=== PATIENT | male | born 1940 | race Caucasian/White ===

== ENCOUNTER 2019-01-16 11:02 | Inpatient (IN) ==
[2019-01-16] MEDS ORDERED: Nitroglycerin 0.4 MG TAB.SUBL SL PRN (11:20)
[2019-01-16] MEDS ORDERED: Isovue-370 500 ML BOTTLE IVP ONE (11:33)
[2019-01-16 11:42] LABS: Basophils % 0.4 %; Eosinophils # 0.1 K/mcL (0.0-0.6); Eosinophils % 1.1 %; Hematocrit 36.1 % (37.5-50.1); Hemoglobin 11.8 g/dL (12.9-16.9); Immature Granulocytes % 0.5 % (0-4); Lymphocytes # 1.1 K/mcL (0.6-4.6); Lymphocytes % 12.4 %; Mean Corpuscular HGB Conc 32.7 g/dL (31.6-35.5); Mean Corpuscular Hemoglobin 30.8 pg (28.0-33.3); Mean Corpuscular Volume 94.3 fL (83.0-100.0); Mean Platelet Volume 9.6 fL (9.4-12.4); Monocytes # 0.7 K/mcL (0.0-1.3); Monocytes % 7.7 %; Neutrophils # 6.6 K/mcL (1.6-8.9); Platelet Count 271 K/mcL (140-400); Red Blood Count 3.83 M/mcL (4.19-5.50); Red Cell Distribution Width 13.4 % (11.5-14.5); Segmented Neutrophils % 77.9 %
[2019-01-16 12:03] LABS: INR 2.6; Prothrombin Time 29.1 Seconds (9.4-12.1)
[2019-01-16 12:05] LABS: BUN/Creatinine Ratio 16 (6-26); Blood Urea Nitrogen 12 mg/dL (8-23); Calcium 9.1 mg/dL (8.6-10.3); Carbon Dioxide 27 mEq/L (23-29); Chloride 104 mEq/L (98-107); Glucose 122 mg/dL (70-105); Osmolality,Calculated 287 (280-300); Potassium 4.3 mEq/L (3.5-5.1); Sodium 138 mEq/L (136-145); eGFR For Non-African Americans > 60 (> 60)
[2019-01-16 12:06] LABS: Activated Partial Thrombo Time 34.7 Seconds (26.0-36.0); Troponin I < 0.03 ng/mL (< 0.04)
--- NOTE | 2019-01-16 12:38 | Emergency Department Note ---
Disposition Clinical Impression: Lung nodules, Liver nodule Chest pain Qualifiers: Qualified Code(s): R07.9 - Chest pain, unspecified Lung cancer Qualifiers: Laterality: unspecified laterality Lung location: unspecified part of lung Qualified Code(s): C34.90 - Malignant neoplasm of unspecified part of unspecified bronchus or lung Disposition: Admitted As Inpatient Condition: Good Time of Disposition: 15:06 General Adult HPI - General Stated complaint: chest pain Time Seen by Provider: 01/16/19 11:08 Source: EMS Limitations: no limitations Nursing Notes Reviewed: Yes Vital Signs Reviewed: Yes - History of Present Illness HPI Narrative: Male patient presents emergency complaining of a chest pressure. States it radiates to his back. Does have associated shortness of breath. Has a history of lung cancer with partial resection of his right lung. Reports he has never had any pain like this before. No history of IA. No history of PE or DVT. Patient was given 4 baby aspirin as well as nitroglycerin on the way here. He was at the cancer center when the started taking a medication for his . Sitting down when he noticed the pain. He states that he does believe he got some relief with the nitroglycerin on the way over. We did provide him with more that while he is here. Pain Scale: 5 - Related Data Home Medications Medication Instructions Recorded Confirmed Allopurinol [Zyloprim 300 MG] 300 mg PO DAILY 01/16/19 01/16/19 Atorvastatin [Lipitor] 20 mg PO HS 01/16/19 01/16/19 Budesonide/Formoterol 80/4.5 1 puff IH DAILY 01/16/19 01/16/19 [Symbicort 80/4.5] Digoxin [Lanoxin] 0.125 mg PO DAILY 01/16/19 01/16/19 Diltiazem CD (24hr) [Cardizem CD] 240 mg PO DAILY 01/16/19 01/16/19 Finasteride [Proscar] 5 mg PO DAILY 01/16/19 01/16/19 Ipratropium/Albuterol Neb [Duoneb] 3 ml IH Q6HR 01/16/19 01/16/19 Metoprolol [Lopressor] 50 mg PO BID 01/16/19 01/16/19 Multivit-Min/FA/Lycopen/Lutein 1 tab PO DAILY 01/16/19 01/16/19 [Centrum Silver Tablet] Omeprazole [PriLOSEC] 20 mg PO DAILY 01/16/19 01/16/19 Potassium Chloride [K-Tab ER] 20 meq PO 01/16/19 RX: Saw Shushan 320 mg PO DAILY 01/16/19 01/16/19 RX: Warfarin [Coumadin] 6 mg PO DAILY 01/16/19 01/16/19 Tamsulosin [Flomax] 0.4 mg PO DAILY PRN 01/16/19 01/16/19 Allergies Allergy/AdvReac Type Severity Reaction Status Date / Time No Known Allergies Allergy Verified 01/16/19 11:38 All systems ED: reviewed and negative except as stated. Review of Systems: As Per HPI Constitutional: Denies: fever, chills ENT ED: Denies: congestion Cardiovascular: Reports: chest pain. Denies: palpitations, syncope Respiratory: Reports: dyspnea. Denies: cough, sputum production Gastrointestinal: Denies: abdominal pain, nausea, vomiting, diarrhea Past Medical History - Past Medical History Attestation: Yes The following information was validated with the patient. Source: patient Medical history: Reports: atrial fibrillation, cancer, DVT Psychiatric history: Reports: no psych history - Social History Smoking Status: Former smoker Smokeless Tobacco Status: No Alcohol use: Reports: none Drug use: Reports: none Physical Exam - General Limitations: no limitations General appearance: alert, in no apparent distress - Head Head exam: atraumatic, normocephalic, normal inspection - Eye Eye exam: Present: normal appearance, PERRL, EOMI - ENT ENT exam: normal exam, normal oropharynx, mucous membranes moist - Neck Neck exam: Present: normal inspection, full ROM, trachea midline - Chest Chest inspection: Present: normal inspection, symmetric chest wall rise - Respiratory Respiratory exam: Present: normal lung sounds bilaterally. Absent: respiratory distress, accessory muscle use - Cardiovascular Cardiovascular exam: Present: regular rate, normal rhythm, normal heart sounds - Abdominal Exam Abdominal exam: Present: soft, Non-Tender. Absent: tenderness, distention, guarding, rebound, rigidity, organomegaly - Extremities Exam Extremities exam: Present: normal inspection, full ROM, normal capillary refill. Absent: tenderness, pedal edema - Back Exam Back exam: Present: normal inspection, full ROM. Absent: tenderness - Neurological Exam Neurological exam: Present: alert, oriented X3 - Psychiatric Psychiatric exam: Present: normal affect, normal mood - Skin Skin exam: Present: warm, dry, intact, normal color. Absent: rash, cyanosis, diaphoresis Course Course Narrative: Male patient with no cardiac history but a history of smoking as well as cancer presenting with chest pain radiates to his back. Has had some mild relief with nitroglycerin. We did provide him with aspirin as well. We will get a basic lab workup on patient and EKG and a CTA PE study. Patient is agreeable with this plan. His lung sounds are clear and heart tones are normal. No signs of edema to his extremities. Abdomen is soft and nontender. Does have a history of A. fib and is currently on Coumadin for this. - Reevaluation(s) Reevaluation #1: Patient CT concerning for metastasis to bilateral lungs. EKG no signs of acute ischemia troponin is negative. No signs of PE to his TTP. Also concerns for possible metastases to his liver. We discussed admission to the hospital for further ACS rule out and possible further evaluation of his chest pain. He is agreeable with this. He requested that I speak with his . I did call her and discussed that there are multiple nodules in the patient's lung and that there was concern that these may be cancer. She expressed understanding. She was also agreeable with the plan. Patient was very anxious during our discussion. Diarrhea. Several times that the nodules were in both sides of his lungs however we were not able to diagnose cancer although that was a concern of ours. We also discussed the liver nodules. We will admit to the hospital at this time. Patient still denies any chest pain or shortness of breath. Also been to the she did admit that the patient has been complaining of some fatigue over the past several months. Time: 15:03 - Consultations Consultation #1: Dr. Rodriguez accepted patient in stable condition. Time: 14:40 Vital Signs Temperature 97.6 F 01/16/19 11:11 Pulse Rate 62 01/16/19 11:11 Respiratory Rate 22 01/16/19 11:11 Blood Pressure 142/74 01/16/19 11:11 O2 Sat by Pulse Oximetry 100 01/16/19 11:11 Temperature 98.1 F 01/17/19 15:39 Pulse Rate 59 01/17/19 15:39 Respiratory Rate 16 01/17/19 15:39 Blood Pressure 152/71 01/17/19 15:39 O2 Sat by Pulse Oximetry 99 01/17/19 15:39 Oxygen Delivery Oxygen Delivery Room Air Medical Decision Making - Medical Records Medical records reviewed: Yes I reviewed the patient's medical records. - Lab Data Lab results reviewed: Yes I reviewed the patient's lab results. Result diagrams: 01/17/19 00:17 01/17/19 00:17 Lab Results 01/16/19 01/16/19 01/16/19 Range/Units 11:27 11:27 11:27 WBC 8.5 (4.3-11.1) K/mcL RBC 3.83 L (4.19-5.50) M/mcL Hgb 11.8 L (12.9-16.9) g/dL Hct 36.1 L (37.5-50.1) % MCV 94.3 (83.0-100.0) fL MCH 30.8 (28.0-33.3) pg MCHC 32.7 (31.6-35.5) g/dL RDW 13.4 (11.5-14.5) % Plt Count 271 (140-400) K/mcL MPV 9.6 (9.4-12.4) fL Immature Gran % 0.5 (0-4) % Seg Neutrophils % 77.9 % Lymphocytes % 12.4 % Monocytes % 7.7 % Eosinophils % 1.1 % Basophils % 0.4 % Neutrophils # 6.6 (1.6-8.9) K/mcL Lymphocytes # 1.1 (0.6-4.6) K/mcL Monocytes # 0.7 (0.0-1.3) K/mcL Eosinophils # 0.1 (0.0-0.6) K/mcL Basophils # 0.0 (0.0-0.2) K/mcL PT 29.1 H (9.4-12.1) Seconds INR 2.6 APTT 34.7 (26.0-36.0) Seconds D-Dimer 631 H (0-500) ng/mLFEU Sodium 138 (136-145) mEq/L Potassium 4.3 (3.5-5.1) mEq/L Chloride 104 (98-107) mEq/L Carbon Dioxide 27 (23-29) mEq/L BUN 12 (8-23) mg/dL Creatinine 0.73 (0.70-1.30) mg/dL Est GFR ( Amer) > 60 (> 60) Est GFR (Non-Af Amer) > 60 (> 60) BUN/Creatinine Ratio 16 (6-26) Glucose 122 H (70-105) mg/dL Calculated Osmolality 287 (280-300) Calcium 9.1 (8.6-10.3) mg/dL Troponin I < 0.03 (< 0.04) ng/mL B-Natriuretic Peptide (Less than 100) pg/mL 01/16/19 Range/Units 11:27 WBC (4.3-11.1) K/mcL RBC (4.19-5.50) M/mcL Hgb (12.9-16.9) g/dL Hct (37.5-50.1) % MCV (83.0-100.0) fL MCH (28.0-33.3) pg MCHC (31.6-35.5) g/dL RDW (11.5-14.5) % Plt Count (140-400) K/mcL MPV (9.4-12.4) fL Immature Gran % (0-4) % Seg Neutrophils % % Lymphocytes % % Monocytes % % Eosinophils % % Basophils % % Neutrophils # (1.6-8.9) K/mcL Lymphocytes # (0.6-4.6) K/mcL Monocytes # (0.0-1.3) K/mcL Eosinophils # (0.0-0.6) K/mcL Basophils # (0.0-0.2) K/mcL PT (9.4-12.1) Seconds INR APTT (26.0-36.0) Seconds D-Dimer (0-500) ng/mLFEU Sodium (136-145) mEq/L Potassium (3.5-5.1) mEq/L Chloride (98-107) mEq/L Carbon Dioxide (23-29) mEq/L BUN (8-23) mg/dL Creatinine (0.70-1.30) mg/dL Est GFR ( Amer) (> 60) Est GFR (Non-Af Amer) (> 60) BUN/Creatinine Ratio (6-26) Glucose (70-105) mg/dL Calculated Osmolality (280-300) Calcium (8.6-10.3) mg/dL Troponin I (< 0.04) ng/mL B-Natriuretic Peptide 227 H (Less than 100) pg/mL - Radiology Data Radiology results reviewed: Yes I reviewed the patient's radiology results. Chest X-Ray 01/16/19 11:09 IMPRESSION: 1. No acute cardiopulmonary process identified. 2. Stable postsurgical changes within the right hemithorax. D/ / David Zabala MD / David Zabala MD Interpreting Provider: David Zabala MD - EKG Data EKG #1 EKG attestation: Yes I reviewed and interpreted this EKG. EKG results narrative: A. fib at a rate of 58. OR interval was not measured. Castration is 101. QT is 49. QTC is 366. No signs of acute ischemia. Good R-wave progression. No signs of WPW or Brugada. Attestation Statement - Attestation Attestation: Resident Attestation: I examined this patient and my medical decision making was reviewed with the Resident Physician. I agree with the documented findings, disposition and treatment plan as described except to the extent set forth below. We independently had [id number] contact with the patient. Patient presented for evaluation of chest pain and shortness of breath. Patient going for evaluation for ACS as well as pone any pathology. Resting in bed currently, no acute distress, chest pain to the center of his chest radiating across, lungs clear to auscultation bilaterally, regular rhythm, abdomen soft nontender palpation, no significant swelling in the peripheral extremities Patient CT scan concerning for significant metastases. Patient will undergo admission for further evaluation of chest pain and abnormal radiographic findings.
--- NOTE | 2019-01-16 15:33 | Internal Med History&Physical ---
Date of Encounter: 01/16/19 Time of Encounter: 11:00 Internal Medicine - H&P: HPI Chief complaint: Chest pain Admitted From: Home Plans for Post Hospital Care: Home History of present illness: Patient is a 78-year-old male with past medical history significant for diagnosis of lung cancer status post right lobectomy in 2012, melanoma in 2009, atrial fibrillation on Coumadin for anticoagulation, DVT and hypertension who presents to the ER on 01/16/19 due to complaints of chest pain. Patient reports a 24-hour history of substernal chest pain but describes as pressure which is constant with no relieving or provoking factors. Patient reports that pain radiates to his back. Patient was concerned so decided to come to the ER for evaluation. In the ER, CTA of the chest was done which was negative for PE however there was extensive pulmonary metastases and metastatic disease in addition to low density lesions in the liver suspicious for metastatic disease. Will admit patient to medical surgical floor for hematology/oncology evaluation and management. Past Med Surg Social Fam HX - Past Medical History Medical history: atrial fibrillation, cancer, DVT Additional medical history: partial lung removal, melanoma Psychiatric history: no psych history - Social History Smoking Status: Former smoker Smokeless Tobacco Status: No Alcohol use: none Drug use: none Internal Medicine - H&P: Meds Allergy/AdvReac Type Severity Reaction Status Date / Time No Known Allergies Allergy Verified 01/16/19 11:38 All Systems PM: A 10-system review of systems was performed and is negative for pertinent findings except as documented above in the HPI. - Constitutional Vitals: Temp Pulse Resp BP Pulse Ox 97.6 F 72 19 90/79 98 01/16/19 11:11 01/16/19 14:43 01/16/19 14:43 01/16/19 14:43 01/16/19 14:43 General appearance: Present: A&O X 3 Exam: As above - Head Head exam: Present: normocephalic - Eye Eye exam: Absent: scleral icterus - ENT ENT exam: Present: mucous membranes moist - Respiratory Respiratory exam: Present: CTAB. Absent: accessory muscle use, rales, rhonchi, wheezes - Cardiovascular Cardiovascular exam: Present: RRR, +S1, +S2. Absent: diastolic murmur, gallop, rubs, systolic murmur - GI/Abdominal GI/Abdominal exam: Present: normal bowel sounds, soft, no peritoneal signs. Absent: distended, tenderness - Extremities Exam Extremities exam: Absent: pedal edema - Neurological Exam Neurological exam: Present: oriented X3 - Psychiatric Psychiatric exam: Present: normal mood - Skin Skin exam: Present: normal color Internal Med - H&P Results - Labs CBC & Chem 7: 01/16/19 11:27 01/16/19 11:27 Labs: Short CBC 01/16/19 Range/Units 11:27 WBC 8.5 (4.3-11.1) K/mcL Hgb 11.8 L (12.9-16.9) g/dL Hct 36.1 L (37.5-50.1) % Plt Count 271 (140-400) K/mcL Neutrophils # 6.6 (1.6-8.9) K/mcL BMP 01/16/19 11:27 Sodium 138 Potassium 4.3 Chloride 104 Carbon Dioxide 27 BUN 12 Creatinine 0.73 Glucose 122 H Calcium 9.1 Cardiac Enzymes 01/16/19 Range/Units 11:27 Troponin I < 0.03 (< 0.04) ng/mL - Impressions ITS Impressions Chest X-Ray 01/16/19 11:09 IMPRESSION: 1. No acute cardiopulmonary process identified. 2. Stable postsurgical changes within the right hemithorax. D/ / David Zabala MD / David Zabala MD Interpreting Provider: David Zabala MD Chest CTA 01/16/19 11:33 IMPRESSION: No evidence of pulmonary embolism. Extensive pulmonary metastatic disease. Low-density lesions in the liver suspicious for metastatic disease. Some of these lesions may be due to coexistent cysts or hemangiomas. D/ / Rene Veliz MD / Rene Veliz MD Interpreting Provider: Rene Veliz MD - Assessment and Plan (1) Metastatic lung carcinoma Current Visit: Yes Status: Acute Assessment and plan: In the ER, CTA of the chest was done which was negative for PE however there was extensive pulmonary metastases and metastatic disease in addition to low density lesions in the liver suspicious for metastatic disease. Patient has a past medical history significant for diagnosis of lung cancer in 2013 status post right lobectomy [facility] Will consult hematology/oncology and appreciate recommendations Qualifiers: Laterality: unspecified laterality Qualified Code(s): C78.00 - Secondary malignant neoplasm of unspecified lung (2) Chest pain Current Visit: Yes Status: Acute Assessment and plan: She presented due to substernal chest pain suspect secondary to metastatic lung cancer above. Set of cardiac biomarkers negative in the ER. Will trend serial troponins and monitor on telemetry. Qualifiers: Qualified Code(s): R07.9 - Chest pain, unspecified (3) Afib Current Visit: No Status: Acute Assessment and plan: Rate controlled; once medical reconciliation completed, continue beta milena and digoxin in addition to oral anticoagulation with Coumadin Qualifiers: Atrial fibrillation type: unspecified Qualified Code(s): I48.91 - Unspecified atrial fibrillation (4) HTN (hypertension), benign Current Visit: Yes Status: Acute Assessment and plan: Controlled;once medical reconciliation completed continue beta milena (5) BPH (benign prostatic hyperplasia) Current Visit: Yes Status: Acute Assessment and plan: once medical reconciliation completed continue finasteride Qualifiers: Lower urinary tract symptom detail: unspecified Qualified Code(s): N40.1 - Benign prostatic hyperplasia with lower urinary tract symptoms (6) Gout Current Visit: Yes Status: Acute Assessment and plan: once medical reconciliation completed continue home dose of allopurinol Qualifiers: Gout etiology: unspecified cause Qualified Code(s): M10.9 - Gout, unspecified (7) History of DVT (deep vein thrombosis) Current Visit: Yes Status: Acute Assessment and plan: Patient on Coumadin as above (8) DVT prophylaxis Current Visit: Yes Status: Acute Assessment and plan: On Coumadin as above - Time Spent With Patient Total time spent is greater than 50% in coordination of care (as documented) at patient's floor/unit and/or counseling patient:
[2019-01-16] MEDS ORDERED: Naloxone 0.4 MG/ML INJ IVP PRN (15:44)
--- NOTE | 2019-01-16 17:13 | Oncology Inp Consult Note ---
<YanezCathy L - Last Filed: 01/17/19 17:08> Date of Encounter: 01/17/19 Time of Encounter: 12:30 Assessment and Plan (1) Alcohol abuse Status: Acute Assessment and plan: Patient reports long standing history of daily alcohol use, up to 10-14 cans of beer daily, currently around 4-5 cans/daily Last known drink 01/15 May need to consider CIWA (2) Afib Status: Acute Assessment and plan: History of A-fib on coumadin Hold coumadin for liver biopsy-INR 2.6 today-cannot start heparin gtt until INR is <2 Plan: We will plan to re-check INR in AM-may discuss with cardio use of FFP if needed Start heparin gtt when INR <2 Qualifiers: Atrial fibrillation type: unspecified Qualified Code(s): I48.91 - Unspecified atrial fibrillation (3) Lung nodules Status: Acute Assessment and plan: CTA chest revealed evidence of extensive pulmonary metastatic disease measuring up to [id number] and low-density lesions in the liver suspicious for metastatic disease. Some of these lesions may be due to coexistent cysts or hemangiomas. History of lung cancer s/p resection 2012 H/O melanoma left abdomen s/p resection 2012 followed by chemo Plan: Need to obtain records regarding lung CA/Melanoma CT abdomen pelvis with IV contrast Plan for biopsy likely of liver lesion-NPO after MN in case of biopsy in AM Will discuss potential reversal of INR if ok with cardio, plan for heparin gtt as stated above Further recommendations in AM pending repeat PT/INR and CT abdomen/pelvis results. - Data of Consult Patient: new to practice Consult date: 01/17/19 Requesting Physician: Tika Rodriguez MD Primary Care Provider: Natalia Anna MD - Consult Narrative Reason for consult: Lung nodules, liver lesions History of present illness: Mr. Muñoz is a 78 year old male with past medical history significant for lung cancer s/p resection in 2012 at [place] with Dr. Boudreaux (unable to recall histology), melanoma resected from left abdomen 2012 followed by IV chemotherapy (patient unable to recall name of chemo, we will need to obtain records), atrial fibrillation on coumadin, DVT and HTN. He presented via squad from [facility]. He was there picking up medicine for his who is a patient at the [facility] when staff noticed he was clutching his chest. Squad was called for patient to be transported to ER. Patient endorses a 24-hour history of substernal chest pain but describes as pressure which is constant with no relieving or provoking factors. Pain radiates to back. In ER, CTA was performed which revealed evidence of extensive pulmonary metastatic disease measuring up to [id number] and low-density lesions in the liver suspicious for metastatic disease. Some of these lesions may be due to coexistent cysts or hemangiomas. Patient states he has noticed increased fatigue recently. His chest pain had been new and acute within the past 24 hours prior to presentation as mentioned above. He has noticed poor appetite for sometime, endorses 20 pound weight loss since April. He has chronic SOB s/p lung resection and has not noticed any changes in breathing. H/O melanoma and multiple excised lipomas, follows regularly with dermatology every 6 months. Quit smoking 25 years ago, prior to this he smoked about 1 PPD for 35 years. History of chronic alcohol abuse for a number of years, used to drink up to 10-14 beers daily, currently drinks about 4-5 beers daily at [employer]. 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 Resides in [place] with his . Past Med Surg Social Fam HX - Past Medical History Medical history: atrial fibrillation, cancer, DVT Additional medical history: partial lung removal, melanoma Psychiatric history: no psych history - Social History Smoking Status: Former smoker Smokeless Tobacco Status: No Alcohol use: none Drug use: none - Family History Father Hx Family Respiratory Disorders: Yes (COPD) Medications and Allergies Allopurinol [Zyloprim 300 MG] 300 mg PO DAILY 01/16/19 [History] Atorvastatin [Lipitor] 20 mg PO DAILY 01/16/19 [History] Budesonide/Formoterol 80/4.5 [Symbicort 80/4.5] 2 puff IH BID PRN 01/16/19 [History] Digoxin [Lanoxin] 0.125 mg PO DAILY 01/16/19 [History] Diltiazem CD (24hr) [Cardizem CD] 240 mg PO DAILY 01/16/19 [History] Finasteride [Proscar] 5 mg PO DAILY 01/16/19 [History] Ipratropium/Albuterol Neb [Duoneb] 3 ml IH QID PRN 01/16/19 [History] Multivit-Min/FA/Lycopen/Lutein [Centrum Silver Tablet] 1 tab PO DAILY 01/16/19 [History] Omeprazole [PriLOSEC] 20 mg PO DAILY 01/16/19 [History] RX: Saw Lamar 160 mg PO BID 01/16/19 [History] RX: Warfarin [Coumadin] 6 mg PO DAILY 01/16/19 [History] Tamsulosin [Flomax] 0.4 mg PO DAILY 01/16/19 [History] Ferrous Sulfate [High Potency Iron] 27 mg PO DAILY 01/17/19 [History] Metoprolol Tartrate 50 mg PO BID 01/17/19 [History] Potassium Chloride [K-Tab ER] 20 meq PO Q48H 01/17/19 [History] RX: Ketoconazole 2% CRM [Nizoral Cream] 1 appl TP BID 01/17/19 [History] Allergy/AdvReac Type Severity Reaction Status Date / Time No Known Allergies Allergy Verified 01/17/19 19:19 Constitutional: Present: anorexia, fatigue, weakness, weight loss. Absent: chills, fever(s), night sweats Eyes: Absent: change in vision Nose, mouth and throat: Present: other. Absent: dysphagia, odynophagia Additional comments: dysgeusia Cardiovascular: Present: as per HPI Additional comments: chest pain has since resolved Respiratory: Present: dyspnea on exertion. Absent: cough, hemoptysis Gastrointestinal: Present: as per HPI. Absent: abdominal pain, bloating, change in bowel habits, nausea, vomiting Additional comments: abdominal hernia Genitourinary: Absent: dysuria Musculoskeletal: Present: muscle weakness Integumentary: Absent: rash, wounds Neurological: Absent: focal weakness, frequent falls Psychiatric: Present: as per HPI Hematologic/Lymphatic: Present: as per HPI Oncology - Exam - Constitutional General appearance: cooperative, no acute distress, no febrile - Head Head exam: Present: atraumatic - ENT ENT exam: Present: mucous membranes moist, normal oropharynx - Respiratory Respiratory exam: Present: decreased breath sounds, CTAB. Absent: respiratory distress - Cardiovascular Cardiovascular exam: Present: RRR, +S1, +S2 - GI/Abdominal GI/Abdominal exam: Present: normal bowel sounds, soft. Absent: tenderness Additional comments: abdominal hernia - Extremities Exam Extremities exam: Present: normal inspection. Absent: calf tenderness - Neurological Exam Neurological exam: Present: alert, oriented X3, no focal deficits, strengths equal and symetr throughout - Psychiatric Psychiatric exam: Present: normal affect, normal mood - Skin Skin exam: Present: dry, intact, normal color, warm Consult Discharge Plan - Plan Referrals: Natalia Anna MD [Primary Care Provider] - 01/25/19 10:00 am Inpatient Charges Provider: Dr. Sonja Grullon <MitchelPinoedward - Last Filed: 01/18/19 17:31> Date of Encounter: 01/18/19 - Data of Consult Requesting Physician: Rachid Chandra Primary Care Provider: Natalia Anna MD - Attending Attestation PAtient with hx lung ca , surgery in the past with hx melanoma, noted to have multiple liver lesions, patient reports that he had prior liver cysts, patient had followed up with his providers in [place]. Multiple lung lesions, metastatic disease need to be real ruled out. Selecting CT scan with contrast of the abdomen, schedule patient for a CT-guided biopsy holding Coumadin, transitioning him to Lovenox after correction of INR plan discussed with patient, possible differential diagnosis reviewed with him imaging findings. I examined this patient and my medical decision-making was reviewed with the Advanced Practice Nurse, Cathy yanez. I agree with the documented findings, disposition and treatment plan as described except to the extent set forth below. Inpatient Charges Provider: Dr. Sonja Grullon Consult - Inpatient: [id number]
--- NOTE | 2019-01-16 23:18 | Electrocardiograph Report ---
[place] [employer] [facility] Test Date: 2019-01-16 Pat Name: Heriberto Muñoz Department: EXAM8 Room: 3B44 Gender: M Accounts Collector: : 1940 Requested By: Shea Cruz Order Number: [id number] Reading MD: Bryan Jain Measurements Intervals [place] Rate: 58 P: DE: QRS: 82 QRSD: 101 T: 71 QT: 409 QTc: 366 Interpretive Statements Atrial fibrillation Borderline right axis deviation Electronically Signed On 01-16-2019 23:16:49 EDT by Bryan Jain
[2019-01-17 00:36] LABS: Basophils % 0.3 %; Eosinophils # 0.2 K/mcL (0.0-0.6); Hematocrit 35.6 % (37.5-50.1); Hemoglobin 11.7 g/dL (12.9-16.9); Immature Granulocytes % 0.3 % (0-4); Lymphocytes # 1.3 K/mcL (0.6-4.6); Lymphocytes % 15.1 %; Mean Corpuscular HGB Conc 32.9 g/dL (31.6-35.5); Mean Corpuscular Hemoglobin 30.4 pg (28.0-33.3); Mean Corpuscular Volume 92.5 fL (83.0-100.0); Mean Platelet Volume 9.6 fL (9.4-12.4); Monocytes # 0.8 K/mcL (0.0-1.3); Monocytes % 9.2 %; Neutrophils # 6.5 K/mcL (1.6-8.9); Platelet Count 276 K/mcL (140-400); Red Blood Count 3.85 M/mcL (4.19-5.50); Red Cell Distribution Width 13.7 % (11.5-14.5); Segmented Neutrophils % 73.1 %
[2019-01-17 00:51] LABS: BUN/Creatinine Ratio 16 (6-26); Blood Urea Nitrogen 12 mg/dL (8-23); Calcium 8.8 mg/dL (8.6-10.3); Carbon Dioxide 28 mEq/L (23-29); Chloride 102 mEq/L (98-107); Glucose 96 mg/dL (70-105); Osmolality,Calculated 286 (280-300); Potassium 4.4 mEq/L (3.5-5.1); Sodium 138 mEq/L (136-145); eGFR For Non-African Americans > 60 (> 60)
--- NOTE | 2019-01-17 09:44 | Internal Med Progress Note ---
Hospitalist Progress Note - Encounter Date of Encounter: 01/17/19 Time of Encounter: 11:00 - Subjective Interval History: Patient with no issues or complaints this morning - Exam Vitals: Temp Pulse Resp BP Pulse Ox 98.0 F 92 16 165/94 95 01/17/19 07:12 01/17/19 07:12 01/17/19 07:12 01/17/19 07:12 01/17/19 07:12 Exam: Gen.: Nonacute distress, alert and oriented 3 ENT: Mucosal membranes moist Respiratory: Lungs are clear to auscultation bilaterally without any wheezing rhonchi or rales Cardiovascular: Normal S1 and S2 regular rate rhythm no murmurs rubs or gallops Abdomen: Soft, nontender and nondistended with positive bowel sounds Extremities: No lower extremity edema Skin: Normal color - Assessment and Plan (1) Metastatic lung carcinoma Current Visit: Yes Status: Acute Assessment and Plan: In the ER, CTA of the chest was done which was negative for PE however there was extensive pulmonary metastases and metastatic disease in addition to low density lesions in the liver suspicious for metastatic disease. Patient has a past medical history significant for diagnosis of lung cancer in 2013 status post right lobectomy [facility] Will consult hematology/oncology and appreciate recommendations (2) Chest pain Current Visit: Yes Status: Acute Assessment and Plan: She presented due to substernal chest pain suspect secondary to metastatic lung cancer above. Set of cardiac biomarkers negative in the ER. Will trend serial troponins and monitor on telemetry. (3) Afib Current Visit: No Status: Acute Assessment and Plan: Rate controlled; continue beta milena and digoxin in addition to oral anticoagulation with Coumadin (4) HTN (hypertension), benign Current Visit: Yes Status: Acute Assessment and Plan: Controlled;continue beta milena (5) BPH (benign prostatic hyperplasia) Current Visit: Yes Status: Acute Assessment and Plan: continue finasteride (6) Gout Current Visit: Yes Status: Acute Assessment and Plan: continue home dose of allopurinol (7) History of DVT (deep vein thrombosis) Current Visit: Yes Status: Acute DVT Prophylaxis: On Coumadin as above - Time Spent with Patient Total time spent is greater than 50% in coordination of care (as documented) at patient's floor/unit and/or counseling patient: Internal Medicine: Result - Labs CBC & Chem 7: 01/18/19 08:35 01/18/19 08:35 Labs: Short CBC 01/16/19 01/17/19 Range/Units 11:27 00:17 WBC 8.5 8.9 (4.3-11.1) K/mcL Hgb 11.8 L 11.7 L (12.9-16.9) g/dL Hct 36.1 L 35.6 L (37.5-50.1) % Plt Count 271 276 (140-400) K/mcL Neutrophils # 6.6 6.5 (1.6-8.9) K/mcL BMP 01/16/19 01/17/19 11:27 00:17 Sodium 138 138 Potassium 4.3 4.4 Chloride 104 102 Carbon Dioxide 27 28 BUN 12 12 Creatinine 0.73 0.75 Glucose 122 H 96 Calcium 9.1 8.8 Cardiac Enzymes 01/16/19 01/16/19 01/17/19 Range/Units 11:27 17:54 00:17 Troponin I < 0.03 < 0.03 < 0.03 (< 0.04) ng/mL 01/17/19 Range/Units 06:09 Troponin I < 0.03 (< 0.04) ng/mL - ABG Interpretation ABG results: PT/INR, D-dimer PT 29.1 Seconds (9.4-12.1) H 01/16/19 11:27 D-Dimer 631 ng/mLFEU (0-500) H 01/16/19 11:27 - Impressions Impressions Chest X-Ray 01/16/19 11:09 IMPRESSION: 1. No acute cardiopulmonary process identified. 2. Stable postsurgical changes within the right hemithorax. D/ / David Zabala MD / David Zabala MD Interpreting Provider: David Zabala MD Chest CTA 01/16/19 11:33 IMPRESSION: No evidence of pulmonary embolism. Extensive pulmonary metastatic disease. Low-density lesions in the liver suspicious for metastatic disease. Some of these lesions may be due to coexistent cysts or hemangiomas. D/ / Rene Veliz MD / Rene Veliz MD Interpreting Provider: Rene Veliz MD Consult Discharge Plan - Plan Referrals: Natalia Anna MD [Primary Care Provider] - 01/25/19 10:00 am (1) Metastatic lung carcinoma Qualifiers: Laterality: unspecified laterality Qualified Code(s): C78.00 - Secondary malignant neoplasm of unspecified lung (2) Chest pain Qualifiers: Qualified Code(s): R07.9 - Chest pain, unspecified (3) Afib Qualifiers: Atrial fibrillation type: unspecified Qualified Code(s): I48.91 - Unspecified atrial fibrillation (5) BPH (benign prostatic hyperplasia) Qualifiers: Lower urinary tract symptom detail: unspecified (6) Gout Qualifiers: Gout etiology: unspecified cause Qualified Code(s): M10.9 - Gout, unspecified
[2019-01-17] MEDS: Ipratropium/Albuterol Neb 3 ML IH SCH ×3 (11:05→21:40)
[2019-01-17] MEDS: Budesonide/Formoterol 80/4.5 MDI IH SCH (11:06)
[2019-01-17] MEDS: Acetaminophen 325 MG TABLET PO PRN (11:18)
[2019-01-17] MEDS: Diltiazem CD (24hr) 240 MG CAPSULE PO SCH (11:18)
[2019-01-17] MEDS: *HR* Digoxin 0.125 MG TABLET PO SCH (11:18)
[2019-01-17] MEDS: Finasteride 5 MG TABLET PO SCH (11:18)
[2019-01-17] MEDS ORDERED: Isovue-370 500 ML BOTTLE IVP ONE (17:09)
[2019-01-17] MEDS ORDERED: *HR* Warfarin 3 MG TABLET PO SCH (18:00)
[2019-01-18] MEDS: Ipratropium/Albuterol Neb 3 ML IH SCH ×4 (03:47→22:53)
[2019-01-18 08:45] LABS: Basophils % 0.3 %; Eosinophils # 0.1 K/mcL (0.0-0.6); Hematocrit 36.4 % (37.5-50.1); Hemoglobin 12.2 g/dL (12.9-16.9); Immature Granulocytes % 0.5 % (0-4); Lymphocytes # 1.4 K/mcL (0.6-4.6); Lymphocytes % 15.3 %; Mean Corpuscular HGB Conc 33.5 g/dL (31.6-35.5); Mean Corpuscular Hemoglobin 30.9 pg (28.0-33.3); Mean Corpuscular Volume 92.2 fL (83.0-100.0); Mean Platelet Volume 9.8 fL (9.4-12.4); Monocytes % 10.7 %; Neutrophils # 6.7 K/mcL (1.6-8.9); Platelet Count 274 K/mcL (140-400); Red Blood Count 3.95 M/mcL (4.19-5.50); Red Cell Distribution Width 13.7 % (11.5-14.5); Segmented Neutrophils % 72.2 %
[2019-01-18 08:53] LABS: INR 1.7
[2019-01-18 09:04] LABS: Alanine Aminotransferase 14 Units/L (7-52); Albumin 3.6 g/dL (3.5-5.7); Albumin/Globulin Ratio 1.3 (1.1-2.2); Alkaline Phosphatase 109 Units/L (34-104); Aspartate Amino Transferase 16 Units/L (13-39); BUN/Creatinine Ratio 15 (6-26); Blood Urea Nitrogen 11 mg/dL (8-23); Carbon Dioxide 28 mEq/L (23-29); Chloride 101 mEq/L (98-107); Globulin 2.8 g/dL (2.4-3.5); Glucose 114 mg/dL (70-105); Osmolality,Calculated 284 (280-300); Sodium 137 mEq/L (136-145); Total Protein 6.4 g/dL (6.4-8.9); eGFR For Non-African Americans > 60 (> 60)
[2019-01-18] MEDS: Multivit/Ca/Min/Fe/FA 1 TAB TABLET PO SCH (09:14)
[2019-01-18] MEDS: Diltiazem CD (24hr) 240 MG CAPSULE PO SCH (09:14)
[2019-01-18] MEDS: *HR* Digoxin 0.125 MG TABLET PO SCH (09:14)
[2019-01-18] MEDS: Finasteride 5 MG TABLET PO SCH (09:15)
[2019-01-18] MEDS: Budesonide/Formoterol 80/4.5 MDI IH SCH (09:56)
[2019-01-18] MEDS ORDERED: *HR* Heparin 5,000 UNIT/ML VIAL IVP ONE (13:37)
[2019-01-18] MEDS ORDERED: *HR* Heparin 5,000 UNIT/ML VIAL IVP PRN ×2 (13:37)
--- NOTE | 2019-01-18 14:31 | Oncology Inp Progress Note ---
Date of Encounter: 01/18/19 Time of Encounter: 09:00 (1) Alcohol abuse Current Visit: Yes Status: Acute Assessment and plan: Patient reports long standing history of daily alcohol use, up to 10-14 cans of beer daily, currently around 4-5 cans/daily Last known drink 01/15 May need to consider CIWA (2) Afib Current Visit: No Status: Acute Assessment and plan: History of A-fib on coumadin Unable to start heparin gtt until INR<2 Plan: Hold coumadin in preparation for liver lesion bx Start hepatin gtt INR 1.7---need to be <1.5 for bx Qualifiers: Atrial fibrillation type: unspecified Qualified Code(s): I48.91 - Unspecified atrial fibrillation (3) Lung nodules Current Visit: Yes Status: Acute Assessment and plan: CTA chest revealed evidence of extensive pulmonary metastatic disease measuring up to [id number] and low-density lesions in the liver suspicious for metastatic disease. Some of these lesions may be due to coexistent cysts or hemangiomas. 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 Cholelithiasis. Diverticulosis. Bladder wall thickening likely represents chronic outlet obstruction given the enlargement of the prostate gland. PSA normal Plan: INR 1.7 today, cannot undergo elective liver lesion biopsy, start heparin gtt (hold coumadin), plan for biopsy Monday Patient has evidence of widespread metastasis, differentials may include metas tatic lung cancer, melanoma, among others. Patient's is a patient with Dr. Ramirez, he would prefer to follow up with Dr. Ramirez after d/c Oncology: Subj Interval history: Mr. Muñoz is sitting on side of bed. Currently denies pain. Denies fever, chills, nausea, vomiting, urinary or bowel complaint. Awaiting plans for biopsy today. - Constitutional General appearance: cooperative, no acute distress, no febrile - Head Head exam: Present: atraumatic - ENT ENT exam: Present: mucous membranes moist, normal oropharynx - Respiratory Respiratory exam: Present: decreased breath sounds, CTAB. Absent: respiratory distress - Cardiovascular Cardiovascular exam: Present: RRR, +S1, +S2 - GI/Abdominal GI/Abdominal exam: Present: normal bowel sounds, soft. Absent: tenderness - Extremities Exam Extremities exam: Present: normal inspection. Absent: calf tenderness - Neurological Exam Neurological exam: Present: alert, oriented X3, no focal deficits, strengths equal and symetr throughout - Psychiatric Psychiatric exam: Present: normal affect, normal mood - Skin Skin exam: Present: dry, intact, normal color, warm Oncology: Obj Data - Labs CBC & Chem 7: 01/18/19 13:52 01/18/19 08:35 Consult Discharge Plan - Plan Referrals: Natalia Anna MD [Primary Care Provider] - 01/25/19 10:00 am Inpatient Charges Provider: Cathy Yanez CNP Follow up - Inpatient: [id number]
[2019-01-18 14:45] LABS: Hematocrit 36.7 % (37.5-50.1); Hemoglobin 12.3 g/dL (12.9-16.9); Mean Corpuscular HGB Conc 33.5 g/dL (31.6-35.5); Mean Corpuscular Hemoglobin 30.9 pg (28.0-33.3); Mean Corpuscular Volume 92.2 fL (83.0-100.0); Platelet Count 303 K/mcL (140-400); Red Blood Count 3.98 M/mcL (4.19-5.50); Red Cell Distribution Width 13.9 % (11.5-14.5)
[2019-01-18] MEDS: Heparin 25,000 UNIT/250 ML D5W 25,000 UNIT/250 ML IV.SOLN IVC SCH (14:54)
[2019-01-18 15:09] LABS: INR 1.6; Prothrombin Time 17.6 Seconds (9.4-12.1)
--- NOTE | 2019-01-18 19:09 | Internal Med Progress Note ---
Hospitalist Progress Note - Encounter Date of Encounter: 01/18/19 Time of Encounter: 11:00 - Subjective Interval History: Patient has elected to complete evaluation/workup requiring biopsy on Monday after INR has reached acceptable levels for procedure. Patient will be placed on heparin drip and Coumadin discontinued - Exam Vitals: Temp Pulse Resp BP Pulse Ox 99.2 F 77 18 150/74 95 01/18/19 18:35 01/18/19 18:35 01/18/19 18:35 01/18/19 18:35 01/18/19 18:35 Exam: Gen.: Nonacute distress, alert and oriented 3 ENT: Mucosal membranes moist Respiratory: Lungs are clear to auscultation bilaterally without any wheezing rhonchi or rales Cardiovascular: Normal S1 and S2 regular rate rhythm no murmurs rubs or gallops Abdomen: Soft, nontender and nondistended with positive bowel sounds Extremities: No lower extremity edema Skin: Normal color - Assessment and Plan (1) Metastatic lung carcinoma Current Visit: Yes Status: Acute Assessment and Plan: In the ER, CTA of the chest was done which was negative for PE however there was extensive pulmonary metastases and metastatic disease in addition to low density lesions in the liver suspicious for metastatic disease. Patient has a past medical history significant for diagnosis of lung cancer in 2013 status post right lobectomy [facility] hematology/oncology following with recommendations for biopsy of liver lesion for further recommendations. (2) Chest pain Current Visit: Yes Status: Acute Assessment and Plan: She presented due to substernal chest pain suspect secondary to metastatic lung cancer above. Cardiac Biomarkers were negative (3) Afib Current Visit: No Status: Acute Assessment and Plan: Rate controlled; continue beta milena and digoxin Will discontinue oral anticoagulation with Coumadin and place on heparin drip for biopsy procedure on Monday (4) HTN (hypertension), benign Current Visit: Yes Status: Acute Assessment and Plan: Controlled;continue beta milena (5) BPH (benign prostatic hyperplasia) Current Visit: Yes Status: Acute Assessment and Plan: continue finasteride (6) Gout Current Visit: Yes Status: Acute Assessment and Plan: continue home dose of allopurinol (7) History of DVT (deep vein thrombosis) Current Visit: Yes Status: Acute Assessment and Plan: Patient will be on heparin drip as above DVT Prophylaxis: Heparin drip as above - Time Spent with Patient Total time spent is greater than 50% in coordination of care (as documented) at patient's floor/unit and/or counseling patient: Internal Medicine: Result - Labs CBC & Chem 7: 01/18/19 13:52 01/18/19 08:35 Labs: Short CBC 01/18/19 01/18/19 Range/Units 08:35 13:52 WBC 9.3 9.0 (4.3-11.1) K/mcL Hgb 12.2 L 12.3 L (12.9-16.9) g/dL Hct 36.4 L 36.7 L (37.5-50.1) % Plt Count 274 303 (140-400) K/mcL Neutrophils # 6.7 (1.6-8.9) K/mcL BMP 01/18/19 08:35 Sodium 137 Potassium 4.0 Chloride 101 Carbon Dioxide 28 BUN 11 Creatinine 0.75 Glucose 114 H Calcium 9.0 Liver Function 01/18/19 Range/Units 08:35 Total Bilirubin 1.0 (0.3-1.0) mg/dL AST 16 (13-39) Units/L ALT 14 (7-52) Units/L Alkaline Phosphatase 109 H (34-104) Units/L Albumin 3.6 (3.5-5.7) g/dL - ABG Interpretation ABG results: PT/INR, D-dimer PT 17.6 Seconds (9.4-12.1) H 01/18/19 13:52 D-Dimer 631 ng/mLFEU (0-500) H 01/16/19 11:27 - Impressions Impressions Abdomen/Pelvis CT 01/17/19 19:30 IMPRESSION: 1. Innumerable low-density liver lesions most likely represent metastatic disease, particularly given the presence of pulmonary and osseous metastases, though a few of these are more typical of cysts. 2. Cholelithiasis without scan evidence for acute cholecystitis. 3. Diverticulosis without scan evidence for diverticulitis. 4. Bladder wall thickening likely represents chronic outlet obstruction given the enlargement of the prostate gland. D/ / Lalo Hahn MD / Lalo Hahn MD Interpreting Provider: Lalo Hahn MD Consult Discharge Plan - Plan Referrals: Natalia Anna MD [Primary Care Provider] - 01/25/19 10:00 am (1) Metastatic lung carcinoma Qualifiers: Laterality: unspecified laterality Qualified Code(s): C78.00 - Secondary malignant neoplasm of unspecified lung (2) Chest pain Qualifiers: Qualified Code(s): R07.9 - Chest pain, unspecified (3) Afib Qualifiers: Atrial fibrillation type: unspecified Qualified Code(s): I48.91 - Unspecified atrial fibrillation (5) BPH (benign prostatic hyperplasia) Qualifiers: Lower urinary tract symptom detail: unspecified (6) Gout Qualifiers: Gout etiology: unspecified cause Qualified Code(s): M10.9 - Gout, unspecified
[2019-01-19] MEDS: Ipratropium/Albuterol Neb 3 ML IH SCH ×4 (04:39→22:35)
[2019-01-19] MEDS: Heparin 25,000 UNIT/250 ML D5W 25,000 UNIT/250 ML IV.SOLN IVC SCH ×2 (07:11→23:42)
--- NOTE | 2019-01-19 08:40 | Internal Med Progress Note ---
Hospitalist Progress Note - Encounter Date of Encounter: 01/19/19 Time of Encounter: 11:00 - Subjective Interval History: Patient presented with chest pain and found to have extensive pulmonary metastases and metastatic disease in addition to low density lesions in the liver suspicious for metastatic disease. Hematology oncology with recommendations for biopsy for workup and evaluation; awaiting INR to be less than 1.5 for potential biopsy on Monday (01/21/19). Coumadin has been held and patient is on heparin drip - Exam Vitals: Temp Pulse Resp BP Pulse Ox 97.9 F 80 17 134/81 95 01/19/19 07:19 01/19/19 07:19 01/19/19 07:19 01/19/19 07:19 01/19/19 07:19 Exam: Gen.: Nonacute distress, alert and oriented 3 ENT: Mucosal membranes moist Respiratory: Lungs are clear to auscultation bilaterally without any wheezing rhonchi or rales Cardiovascular: Normal S1 and S2 regular rate rhythm no murmurs rubs or gallops Abdomen: Soft, nontender and nondistended with positive bowel sounds Extremities: No lower extremity edema Skin: Normal color - Assessment and Plan (1) Metastatic lung carcinoma Current Visit: Yes Status: Acute Assessment and Plan: Patient presented with chest pain and found to have extensive pulmonary metastases and metastatic disease in addition to low density lesions in the liver suspicious for metastatic disease. Patient has a past medical history significant for diagnosis of lung cancer in 2013 status post right lobectomy [facility] Hematology oncology with recommendations for biopsy for workup and evaluation; awaiting INR to be less than 1.5 for potential biopsy on Monday (01/21/19). Coumadin has been held and patient is on heparin drip (2) Afib Current Visit: No Status: Acute Assessment and Plan: Rate controlled; continue beta milena and digoxin Will discontinue oral anticoagulation with Coumadin and place on heparin drip for biopsy procedure on Monday (3) HTN (hypertension), benign Current Visit: Yes Status: Acute Assessment and Plan: Controlled;continue beta milena (4) BPH (benign prostatic hyperplasia) Current Visit: Yes Status: Acute Assessment and Plan: continue finasteride (5) Gout Current Visit: Yes Status: Acute Assessment and Plan: continue home dose of allopurinol (6) History of DVT (deep vein thrombosis) Current Visit: Yes Status: Acute Assessment and Plan: Patient will be on heparin drip as above (7) Alcohol dependence Current Visit: Yes Status: Acute Assessment and Plan: Apparently patient symptoms approximately 4-5 cans of beer daily Will cover with Cipro scale - Time Spent with Patient Total time spent is greater than 50% in coordination of care (as documented) at patient's floor/unit and/or counseling patient: Internal Medicine: Result - Labs CBC & Chem 7: 01/19/19 09:17 01/19/19 09:17 Labs: Short CBC 01/18/19 01/18/19 Range/Units 08:35 13:52 WBC 9.3 9.0 (4.3-11.1) K/mcL Hgb 12.2 L 12.3 L (12.9-16.9) g/dL Hct 36.4 L 36.7 L (37.5-50.1) % Plt Count 274 303 (140-400) K/mcL Neutrophils # 6.7 (1.6-8.9) K/mcL BMP 01/18/19 08:35 Sodium 137 Potassium 4.0 Chloride 101 Carbon Dioxide 28 BUN 11 Creatinine 0.75 Glucose 114 H Calcium 9.0 Liver Function 01/18/19 Range/Units 08:35 Total Bilirubin 1.0 (0.3-1.0) mg/dL AST 16 (13-39) Units/L ALT 14 (7-52) Units/L Alkaline Phosphatase 109 H (34-104) Units/L Albumin 3.6 (3.5-5.7) g/dL - ABG Interpretation ABG results: PT/INR, D-dimer PT 17.6 Seconds (9.4-12.1) H 01/18/19 13:52 D-Dimer 631 ng/mLFEU (0-500) H 01/16/19 11:27 Consult Discharge Plan - Plan Referrals: Natalia Anna MD [Primary Care Provider] - 01/25/19 10:00 am ____ (1) Metastatic lung carcinoma Qualifiers: Laterality: unspecified laterality Qualified Code(s): C78.00 - Secondary malignant neoplasm of unspecified lung (2) Afib Qualifiers: Atrial fibrillation type: unspecified Qualified Code(s): I48.91 - Unspecified atrial fibrillation (4) BPH (benign prostatic hyperplasia) Qualifiers: Lower urinary tract symptom detail: unspecified (5) Gout Qualifiers: Gout etiology: unspecified cause Qualified Code(s): M10.9 - Gout, unspecified
[2019-01-19] MEDS ORDERED: *HR* LORazepam 2 MG/ML VIAL IVP PRN (08:43)
[2019-01-19] MEDS: Diltiazem CD (24hr) 240 MG CAPSULE PO SCH (08:56)
[2019-01-19] MEDS: Finasteride 5 MG TABLET PO SCH (08:56)
[2019-01-19] MEDS: *HR* Digoxin 0.125 MG TABLET PO SCH (08:56)
[2019-01-19] MEDS: Multivit/Ca/Min/Fe/FA 1 TAB TABLET PO SCH (08:56)
[2019-01-19 09:37] LABS: Basophils % 0.5 %; Eosinophils # 0.1 K/mcL (0.0-0.6); Eosinophils % 1.6 %; Hematocrit 37.1 % (37.5-50.1); Hemoglobin 12.5 g/dL (12.9-16.9); Immature Granulocytes % 0.6 % (0-4); Lymphocytes # 1.3 K/mcL (0.6-4.6); Lymphocytes % 14.2 %; Mean Corpuscular HGB Conc 33.7 g/dL (31.6-35.5); Mean Corpuscular Hemoglobin 31.6 pg (28.0-33.3); Mean Corpuscular Volume 93.9 fL (83.0-100.0); Mean Platelet Volume 10.1 fL (9.4-12.4); Monocytes # 0.6 K/mcL (0.0-1.3); Monocytes % 6.3 %; Neutrophils # 6.8 K/mcL (1.6-8.9); Platelet Count 283 K/mcL (140-400); Red Blood Count 3.95 M/mcL (4.19-5.50); Segmented Neutrophils % 76.8 %
[2019-01-19 09:45] LABS: INR 1.4
[2019-01-19 09:55] LABS: BUN/Creatinine Ratio 16 (6-26); Blood Urea Nitrogen 12 mg/dL (8-23); Carbon Dioxide 27 mEq/L (23-29); Chloride 100 mEq/L (98-107); Glucose 138 mg/dL (70-105); Osmolality,Calculated 286 (280-300); Potassium 3.8 mEq/L (3.5-5.1); Sodium 137 mEq/L (136-145); eGFR For Non-African Americans > 60 (> 60)
[2019-01-19] MEDS: Budesonide/Formoterol 80/4.5 MDI IH SCH (10:39)
[2019-01-20] MEDS: Ipratropium/Albuterol Neb 3 ML IH SCH ×4 (04:17→21:24)
--- NOTE | 2019-01-20 08:29 | Internal Med Progress Note ---
Hospitalist Progress Note - Encounter Date of Encounter: 01/20/19 Time of Encounter: 11:00 - Subjective Interval History: Patient presented with chest pain and found to have extensive pulmonary metastases and metastatic disease in addition to low density lesions in the liver suspicious for metastatic disease. Hematology oncology with recommendations for biopsy for workup and evaluation; awaiting INR to be less than 1.5 for potential biopsy on Monday (01/21/19); due to transportation issues patient elected to stay over the weekend Workup completed on Monday. Coumadin has been held and patient is on heparin drip - Exam Vitals: Temp Pulse Resp BP Pulse Ox 97.8 F 78 16 151/80 96 01/20/19 02:44 01/20/19 02:44 01/20/19 04:17 01/20/19 02:44 01/20/19 04:17 Exam: Gen.: Nonacute distress, alert and oriented 3 ENT: Mucosal membranes moist Respiratory: Lungs are clear to auscultation bilaterally without any wheezing rhonchi or rales Cardiovascular: Normal S1 and S2 regular rate rhythm no murmurs rubs or gallops Abdomen: Soft, nontender and nondistended with positive bowel sounds Extremities: No lower extremity edema Skin: Normal color - Assessment and Plan (1) Metastatic lung carcinoma Current Visit: Yes Status: Acute Assessment and Plan: Patient presented with chest pain and found to have extensive pulmonary metastases and metastatic disease in addition to low density lesions in the liver suspicious for metastatic disease. Patient has a past medical history significant for diagnosis of lung cancer in 2013 status post right lobectomy [facility] Hematology oncology with recommendations for biopsy for workup and evaluation; awaiting INR to be less than 1.5 for potential biopsy on Monday (01/21/19). Coumadin has been held and patient is on heparin drip (2) Afib Current Visit: No Status: Acute Assessment and Plan: Rate controlled; continue beta milena and digoxin Will discontinue oral anticoagulation with Coumadin and place on heparin drip for biopsy procedure on Monday (3) HTN (hypertension), benign Current Visit: Yes Status: Acute Assessment and Plan: Controlled;continue beta milena (4) BPH (benign prostatic hyperplasia) Current Visit: Yes Status: Acute Assessment and Plan: continue finasteride (5) Gout Current Visit: Yes Status: Acute Assessment and Plan: continue home dose of allopurinol (6) History of DVT (deep vein thrombosis) Current Visit: Yes Status: Acute Assessment and Plan: Patient will be on heparin drip as above (7) Alcohol dependence Current Visit: Yes Status: Acute Assessment and Plan: Apparently patient symptoms approximately 4-5 cans of beer daily Will cover with Cipro scale DVT Prophylaxis: Heparin drip as above - Time Spent with Patient Total time spent is greater than 50% in coordination of care (as documented) at patient's floor/unit and/or counseling patient: Internal Medicine: Result - Labs CBC & Chem 7: 01/20/19 08:32 01/20/19 08:32 Labs: Short CBC 01/19/19 Range/Units 09:17 WBC 8.8 (4.3-11.1) K/mcL Hgb 12.5 L (12.9-16.9) g/dL Hct 37.1 L (37.5-50.1) % Plt Count 283 (140-400) K/mcL Neutrophils # 6.8 (1.6-8.9) K/mcL BMP 01/19/19 09:17 Sodium 137 Potassium 3.8 Chloride 100 Carbon Dioxide 27 BUN 12 Creatinine 0.75 Glucose 138 H Calcium 9.0 - ABG Interpretation ABG results: PT/INR, D-dimer PT 16.0 Seconds (9.4-12.1) H 01/19/19 09:17 D-Dimer 631 ng/mLFEU (0-500) H 01/16/19 11:27 Consult Discharge Plan - Plan Referrals: Natalia Anna MD [Primary Care Provider] - 01/25/19 10:00 am (1) Metastatic lung carcinoma Qualifiers: Laterality: unspecified laterality Qualified Code(s): C78.00 - Secondary malignant neoplasm of unspecified lung (2) Afib Qualifiers: Atrial fibrillation type: unspecified Qualified Code(s): I48.91 - Unspecified atrial fibrillation (4) BPH (benign prostatic hyperplasia) Qualifiers: Lower urinary tract symptom detail: unspecified (5) Gout Qualifiers: Gout etiology: unspecified cause Qualified Code(s): M10.9 - Gout, unspecified
[2019-01-20] MEDS: Finasteride 5 MG TABLET PO SCH (08:51)
[2019-01-20] MEDS: Diltiazem CD (24hr) 240 MG CAPSULE PO SCH (08:51)
[2019-01-20] MEDS: *HR* Digoxin 0.125 MG TABLET PO SCH (08:51)
[2019-01-20] MEDS: Multivit/Ca/Min/Fe/FA 1 TAB TABLET PO SCH (08:51)
[2019-01-20 08:52] LABS: Basophils % 0.3 %; Eosinophils # 0.2 K/mcL (0.0-0.6); Eosinophils % 1.8 %; Hematocrit 37.1 % (37.5-50.1); Hemoglobin 12.3 g/dL (12.9-16.9); Immature Granulocytes % 0.5 % (0-4); Lymphocytes # 1.2 K/mcL (0.6-4.6); Lymphocytes % 12.6 %; Mean Corpuscular HGB Conc 33.2 g/dL (31.6-35.5); Mean Corpuscular Hemoglobin 30.8 pg (28.0-33.3); Mean Corpuscular Volume 92.8 fL (83.0-100.0); Mean Platelet Volume 9.9 fL (9.4-12.4); Monocytes # 0.7 K/mcL (0.0-1.3); Monocytes % 7.6 %; Neutrophils # 7.2 K/mcL (1.6-8.9); Platelet Count 287 K/mcL (140-400); Red Cell Distribution Width 13.7 % (11.5-14.5); Segmented Neutrophils % 77.2 %
[2019-01-20 09:00] LABS: INR 1.3; Prothrombin Time 14.6 Seconds (9.4-12.1)
[2019-01-20 09:11] LABS: BUN/Creatinine Ratio 17 (6-26); Blood Urea Nitrogen 12 mg/dL (8-23); Calcium 9.2 mg/dL (8.6-10.3); Carbon Dioxide 23 mEq/L (23-29); Chloride 102 mEq/L (98-107); Glucose 117 mg/dL (70-105); Osmolality,Calculated 283 (280-300); Potassium 4.1 mEq/L (3.5-5.1); Sodium 136 mEq/L (136-145); eGFR For Non-African Americans > 60 (> 60)
[2019-01-20] MEDS: Budesonide/Formoterol 80/4.5 MDI IH SCH (10:03)
[2019-01-20] MEDS: Heparin 25,000 UNIT/250 ML D5W 25,000 UNIT/250 ML IV.SOLN IVC SCH (15:04)
[2019-01-20] MEDS: Acetaminophen 325 MG TABLET PO PRN (22:05)
[2019-01-21] MEDS: Ipratropium/Albuterol Neb 3 ML IH SCH ×4 (03:59→22:21)
[2019-01-21] MEDS: Heparin 25,000 UNIT/250 ML D5W 25,000 UNIT/250 ML IV.SOLN IVC SCH (07:25)
[2019-01-21 08:22] LABS: INR 1.2; Prothrombin Time 13.9 Seconds (9.4-12.1)
[2019-01-21 08:26] LABS: Heparin anti-factor XA UFH 0.35 IU/mL (0.30-0.70)
[2019-01-21] MEDS: Finasteride 5 MG TABLET PO SCH (09:23)
[2019-01-21] MEDS: Diltiazem CD (24hr) 240 MG CAPSULE PO SCH (09:24)
[2019-01-21] MEDS: *HR* Digoxin 0.125 MG TABLET PO SCH (09:24)
[2019-01-21] MEDS: Multivit/Ca/Min/Fe/FA 1 TAB TABLET PO SCH (09:24)
--- NOTE | 2019-01-21 10:51 | Oncology Inp Progress Note ---
<Jaylen Ramirez S - Last Filed: 01/21/19 18:10> Date of Encounter: 01/21/19 Oncology: Obj Data - Labs CBC & Chem 7: 01/20/19 08:32 01/20/19 08:32 Consult Discharge Plan - Plan Referrals: Natalia Anna MD [Primary Care Provider] - 01/25/19 10:00 am Inpatient Charges Provider: Dr. Mouna Ramirez Follow up - Inpatient: [id number] - Attending Attestation I examined this patient and my medical decision-making was reviewed with the Advanced Practice Nurse to level Lorena Iliana. I agree with the documented findings, disposition and treatment plan as described except to the extent set forth below. 1. History of melanoma 2009 and stage I lung cancer 2012. Chest x-ray -2017. Spoke with today. He had an MRI in 2013 which did show some liver cysts 2. Multifocal new hepatic hypodense lesions. Biopsy was done today on 01/21/2019. She also has bilateral lung nodules largest was about 2 cm. We will await the results and treatment recommendation after that. Would consider PET scan is noted patient <Doni Barrientosa M - Last Filed: 01/21/19 19:11> Date of Encounter: 01/21/19 Time of Encounter: 10:46 (1) Lung nodules Current Visit: Yes Status: Acute Assessment and plan: Current Visit: Yes Status: Acute Assessment and plan: CTA chest revealed evidence of extensive pulmonary metastatic disease measuring up to [id number] and low-density lesions in the liver suspicious for metastatic disease. Some of these lesions may be due to coexistent cysts or hemangiomas. 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 Cholelithiasis. Diverticulosis. Bladder wall thickening likely represents chronic outlet obstruction given the enlargement of the prostate gland. PSA normal Plan: Patient has evidence of widespread metastasis, differentials may include metastatic lung cancer, melanoma, among others. Patient's is a patient with Dr. Ramirez, he would prefer to follow up with Dr. Ramirez after d/c Plan for follow up with Dr. Ramirez on 01/25/19. Will plan for MRI brain and PET/CT, if indicated after biopsy results. (2) Liver nodule Current Visit: Yes Status: Acute Assessment and plan: Liver Lesions CT abdomen pelvis with IV contrast-Innumerable low-density liver lesions most likely represent metastatic disease, particularly given the presence of pulmonary and osseous metastases, though a few of these are more typical of cysts. Cholelithiasis. Diverticulosis. Bladder wall thickening likely represents chronic outlet obstruction given the enlargement of the prostate gland. Liver biopsy when INR < 1.5 01/21/19: INR 1.2 today. Plan: Liver biopsy today. Heparin drip on hold. Patient NPO. (3) Afib Current Visit: No Status: Acute Assessment and plan: History of A-fib on coumadin Unable to start heparin gtt until INR<2 Plan: Hold coumadin in preparation for liver lesion bx Start hepatin gtt 01/21/19: INR 1.2---need to be <1.5 for bx Plan for biopsy today. Qualifiers: Atrial fibrillation type: unspecified Qualified Code(s): I48.91 - Unspecified atrial fibrillation Qualifiers: Atrial fibrillation type: unspecified Qualified Code(s): I48.91 - Unspecified atrial fibrillation Oncology: Subj Interval history: Heriberto is awake, sitting on the edge of the bed this morning. He denies chest pain or pressure at this time. He continues with mild dyspnea which he says is normal for him since his lobectomy in 2012. Discussed that INR is 1.2 and in range for liver biopsy today. He notes that his heparin drip was turned off around 7:30 this morning. He denies questions or concerns about the liver biopsy. He denies nausea, vomiting, diarrhea, constipation, or abdominal pain. He denies fever or chills. Discussed that the biopsy results should be complete in 5-7 days and then he will follow up with Dr. Rmairez at the cancer center. Heriberto verbalized understanding and notes that he and his will both see Dr. Ramirez as their oncologist. - Constitutional General appearance: cooperative, no acute distress - Head Head exam: Present: normal inspection, normocephalic - Respiratory Respiratory exam: Present: decreased breath sounds, CTAB. Absent: respiratory distress, rhonchi, wheezes, tachypnea - Cardiovascular Cardiovascular exam: Present: irregular rhythm - GI/Abdominal GI/Abdominal exam: Present: normal bowel sounds, soft. Absent: tenderness - Extremities Exam Extremities exam: Present: normal inspection. Absent: calf tenderness, pedal edema - Neurological Exam Neurological exam: Present: alert, oriented X3, strengths equal and symetr throughout. Absent: no focal deficits, facial droop, speech deficit - Psychiatric Psychiatric exam: Present: normal affect, normal mood - Skin Skin exam: Present: dry, warm Oncology: Obj Data - Labs CBC & Chem 7: 01/20/19 08:32 01/20/19 08:32
[2019-01-21] MEDS: Budesonide/Formoterol 80/4.5 MDI IH SCH (11:00)
[2019-01-21] MEDS ORDERED: *HR* Midazolam HCl 2 MG/2 ML VIAL IVP ONE (14:40)
[2019-01-21] MEDS ORDERED: *HR* FentaNYL (PF) 100 MCG/2 ML VIAL IVP ONE (14:40)
[2019-01-21] MEDS ORDERED: 0.9 % Sodium Chloride 500 ML ONE (14:41)
--- NOTE | 2019-01-21 15:19 | Pre-Sedation Evaluation ---
Pre-sedation evaluation - Pre-sedation checklist Date of procedure: 01/21/19 Procedure: liver bx Recent Vitals: Last Vital Signs Temp 97.8 F 01/21/19 11:41 Pulse 67 01/21/19 15:15 Resp 14 01/21/19 15:15 BP 107/72 01/21/19 15:15 Pulse Ox 98 01/21/19 15:15 H&P (including ROS) documented in medical record: Yes Previous reaction to sedatives/anesthetics: No Dietary Status: NPO after Midnight Airway Assessment: Patient can open mouth completely, TMJ function normal, Micrognathia (under-bite, receding chin) absent, Neck with adequate range of motion Dentition: poor dentition ASA Classification *see protocol: CLASS II-Mild systemic disease Plan of Care: Pt appropriate candidate for procedure/moderate/conscious sedation, Risks/benefits of procedure/sedation discussed w/ patient/family, If not NPO; Risk of intake outweiged by necessity to perform procedure
--- NOTE | 2019-01-21 15:21 | IR Procedure Note ---
Date of procedure: 01/21/19 Consent Obtained: Verbal consent, Written consent Timeout: Correct patient and procedure verified, Correct site verified, Time out performed, Skin prep completed Local anesthetic: Lidocaine 1% Indications: liver lesions Procedure Performed: CT guided biopsy Was there an physician assistant certified present: No Site/Technique: left hepatic lobe lesion Estimated blood loss (cc): 1 Complications: None; Tolerated procedure well Post Procedure Treatment Plan: bedrest x 2 hours Specimen: core biopsies
[2019-01-21] MEDS: *HR* Enoxaparin 120 MG/0.8 ML SYRINGE SQ SCH (17:43)
[2019-01-21] MEDS ORDERED: *HR* Warfarin 3 MG TABLET PO ONE (18:00)
[2019-01-21] MEDS ORDERED: Warfarin perPT PO PRN (18:00)
--- NOTE | 2019-01-21 18:50 | Internal Med Progress Note ---
Hospitalist Progress Note - Encounter Date of Encounter: 01/21/19 Time of Encounter: 11:00 - Subjective Interval History: Patient status post liver biopsy for evaluation of suspected pulmonary metastases Will need to keep patient overnight to bridge with Lovenox and Coumadin. - Exam Vitals: Temp Pulse Resp BP Pulse Ox 97.8 F 81 17 171/74 100 01/21/19 11:41 01/21/19 17:25 01/21/19 17:25 01/21/19 17:25 01/21/19 17:25 Exam: Gen.: Nonacute distress, alert and oriented 3 ENT: Mucosal membranes moist Respiratory: Lungs are clear to auscultation bilaterally without any wheezing rhonchi or rales Cardiovascular: Normal S1 and S2 regular rate rhythm no murmurs rubs or gallops Abdomen: Soft, nontender and nondistended with positive bowel sounds Extremities: No lower extremity edema Skin: Normal color - Assessment and Plan (1) Metastatic lung carcinoma Current Visit: Yes Status: Acute Assessment and Plan: Patient presented with chest pain and found to have extensive pulmonary metastases and metastatic disease in addition to low density lesions in the liver suspicious for metastatic disease. Patient has a past medical history significant for diagnosis of lung cancer in 2013 status post right lobectomy [facility] Hematology oncology with recommendations for biopsy for workup and evaluation which was done this afternoon (2) Afib Current Visit: No Status: Acute Assessment and Plan: Rate controlled; continue beta milena and digoxin Patient started back on Coumadin with Lovenox bridge (3) HTN (hypertension), benign Current Visit: Yes Status: Acute Assessment and Plan: Controlled;continue beta milena (4) BPH (benign prostatic hyperplasia) Current Visit: Yes Status: Acute Assessment and Plan: continue finasteride (5) Gout Current Visit: Yes Status: Acute Assessment and Plan: continue home dose of allopurinol (6) History of DVT (deep vein thrombosis) Current Visit: Yes Status: Acute Assessment and Plan: anticoagulation as above (7) Alcohol dependence Current Visit: Yes Status: Acute Assessment and Plan: Apparently patient symptoms approximately 4-5 cans of beer daily Will cover with Cipro scale DVT Prophylaxis: Patient started back on Coumadin with Lovenox bridge - Time Spent with Patient Total time spent is greater than 50% in coordination of care (as documented) at patient's floor/unit and/or counseling patient: Internal Medicine: Result - Labs CBC & Chem 7: 01/20/19 08:32 01/20/19 08:32 - ABG Interpretation ABG results: PT/INR, D-dimer PT 13.9 Seconds (9.4-12.1) H 01/21/19 05:40 D-Dimer 631 ng/mLFEU (0-500) H 01/16/19 11:27 - Impressions Impressions Liver Biopsy CT 01/21/19 00:00 IMPRESSION: CT-guided core biopsy of a focal left hepatic lobe lesion performed. D/ / Vinh Gudino MD / Vinh Gudino MD Interpreting Provider: Vinh Gudino MD Consult Discharge Plan - Plan Referrals: Natalia Anna MD [Primary Care Provider] - 01/25/19 10:00 am (1) Metastatic lung carcinoma Qualifiers: Laterality: unspecified laterality Qualified Code(s): C78.00 - Secondary malignant neoplasm of unspecified lung (2) Afib Qualifiers: Atrial fibrillation type: unspecified Qualified Code(s): I48.91 - Unspecified atrial fibrillation (4) BPH (benign prostatic hyperplasia) Qualifiers: Lower urinary tract symptom detail: unspecified (5) Gout Qualifiers: Gout etiology: unspecified cause Qualified Code(s): M10.9 - Gout, unspecified
--- NOTE | 2019-01-21 19:35 | Oncology Inp Progress Note ---
Date of Encounter: 01/19/19 Time of Encounter: 19:33 (1) Lung nodules Current Visit: Yes Status: Acute Assessment and plan: Bilateral lung nodules and liver lesions concerning for metastasis. We will do a liver biopsy. PET scan as an outpatient. Also MRI brain with and without contrast as an outpatient. Treatment recommendation after diagnosis. Oncology: Subj Interval history: CTA chest revealed evidence of extensive pulmonary metastatic disease measuring up to [id number] and low-density lesions in the liver suspicious for metastatic disease. Some of these lesions may be due to coexistent cysts or hemangiomas. 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 Cholelithiasis. Diverticulosis. Bladder wall thickening likely represents chronic outlet obstruction given the enlargement of the prostate gland. His INR has come down and he will be getting liver biopsy Monday. - Constitutional Exam: GENERAL: Alert and oriented, well appearing. Mental Status: Affect appropriate for circumstances HEENT: Sclerae anicteric. No mucositis or thrush. No other oral or pharyngeal lesions or erythema. Skin: No rashes or petechiae. No evidence of skin malignancy Lymph nodes: No cervical, supraclavicular, axillary, or inguinal adenopathy. Lungs: Air entry normal with normal breath sounds. No rhonchi or wheezing Cardiovascular: Regular rate and rhythm. No skipped beats Abdomen: Soft, nontender; no organomegaly or masses palpable. Extremities: No edema. No calf swelling or tenderness. No joint deformity. Neurologic: Alert, cranial nerves II-XII intact; normal gait; no focal weakness or sensory abnormalities Oncology: Obj Data - Labs CBC & Chem 7: 01/20/19 08:32 01/20/19 08:32 Consult Discharge Plan - Plan Referrals: Natalia Anna MD [Primary Care Provider] - 01/25/19 10:00 am Inpatient Charges Provider: Dr. Mouna Ramirez Follow up - Inpatient: [id number]
[2019-01-21] MEDS: Acetaminophen 325 MG TABLET PO PRN (20:20)
[2019-01-22] MEDS: Ipratropium/Albuterol Neb 3 ML IH SCH ×2 (03:59→10:39)
[2019-01-22] MEDS: *HR* Enoxaparin 120 MG/0.8 ML SYRINGE SQ SCH (05:46)
[2019-01-22 06:12] LABS: INR 1.2
[2019-01-22] MEDS: Finasteride 5 MG TABLET PO SCH (08:51)
[2019-01-22] MEDS: Multivit/Ca/Min/Fe/FA 1 TAB TABLET PO SCH (08:51)
[2019-01-22] MEDS: Diltiazem CD (24hr) 240 MG CAPSULE PO SCH (08:52)
[2019-01-22] MEDS: *HR* Digoxin 0.125 MG TABLET PO SCH (08:52)
[2019-01-22] MEDS: Budesonide/Formoterol 80/4.5 MDI IH SCH (10:38)
[2019-01-22 11:25] VITALS: BP 142/84
--- NOTE | 2019-01-22 15:13 | Discharge Summary ---
- NOTES TO OUTPATIENT PROVIDER Notes to Outpatient Provider: Follow-up with traveling auditor/oncologist Orders not resulted at time of discharge: Pending orders 01/23/19 04:00 PT/INR [Prothrombin Time INR] [COAG] AM 0400 01/24/19 04:00 PT/INR [Prothrombin Time INR] [COAG] AM 0400 Date of Encounter: 01/22/19 Time of Encounter: 11:00 - Discharge Diagnosis (1) Metastatic lung carcinoma Priority: Primary Status: Acute Qualifiers: Laterality: unspecified laterality Qualified Code(s): C78.00 - Secondary malignant neoplasm of unspecified lung (2) Afib Priority: Secondary Status: Acute Qualifiers: Atrial fibrillation type: unspecified Qualified Code(s): I48.91 - Unspecified atrial fibrillation (3) HTN (hypertension), benign Priority: Secondary Status: Acute (4) BPH (benign prostatic hyperplasia) Priority: Secondary Status: Acute Qualifiers: Lower urinary tract symptom detail: unspecified Qualified Code(s): N40.1 - Benign prostatic hyperplasia with lower urinary tract symptoms (5) Gout Priority: Secondary Status: Acute Qualifiers: Gout etiology: unspecified cause Qualified Code(s): M10.9 - Gout, unspecified (6) History of DVT (deep vein thrombosis) Priority: Secondary Status: Acute (7) Alcohol dependence Priority: Secondary Status: Acute Qualifiers: Complication of substance-induced condition: uncomplicated Qualified Code(s): F10.220 - Alcohol dependence with intoxication, uncomplicated Hospital course: Patient is a 78-year-old male with past medical history significant for diagnosis of lung cancer status post right lobectomy in 2012, melanoma in 2009, atrial fibrillation on Coumadin for anticoagulation, DVT and hypertension who presents to the ER on 01/16/19 due to complaints of chest pain. Patient reports a 24-hour history of substernal chest pain but describes as pressure which is constant with no relieving or provoking factors. Patient reports that pain radiates to his back. Patient was concerned so decided to come to the ER for evaluation. In the ER, CTA of the chest was done which was negative for PE however there was extensive pulmonary metastases and metastatic disease in addition to low density lesions in the liver suspicious for metastatic disease. Will admit patient to medical surgical floor for hematology/oncology evaluation and management. During patients hospital stay hematology oncology was consulted with recommendations for liver lesion biopsy which was done. Patient will be discharged on Coumadin with Lovenox bridge and to follow-up with hematology oncology as outpatient. - Time Spent with Patient Total time spent providing and/or coordinating discharge services: Time spent: Less than 30 minutes - Discharge Medications Prescriptions: New Enoxaparin [Lovenox] 110 mg SQ Q12HCO #28 syringe Continue Warfarin [Coumadin] 6 mg PO DAILY Diltiazem CD (24hr) [Cardizem CD] 240 mg PO DAILY Omeprazole [PriLOSEC] 20 mg PO DAILY Finasteride [Proscar] 5 mg PO DAILY Digoxin [Lanoxin] 0.125 mg PO DAILY Tamsulosin [Flomax] 0.4 mg PO DAILY Allopurinol [Zyloprim 300 MG] 300 mg PO DAILY Atorvastatin [Lipitor] 20 mg PO DAILY Ipratropium/Albuterol Neb [Duoneb] 3 ml IH QID PRN PRN Reason: Shortness Of Breath Saw [place] 160 mg PO BID Multivit-Min/FA/Lycopen/Lutein [Centrum Silver Tablet] 1 tab PO DAILY Budesonide/Formoterol 80/4.5 [Symbicort 80/4.5] 2 puff IH BID PRN PRN Reason: Shortness Of Breath Ferrous Sulfate [High Potency Iron] 27 mg PO DAILY Metoprolol Tartrate 50 mg PO BID Potassium Chloride [K-Tab ER] 20 meq PO Q48H Ketoconazole 2% CRM [Nizoral Cream] 1 appl TP BID Home Medications: Allopurinol [Zyloprim 300 MG] 300 mg PO DAILY 01/16/19 [History] Atorvastatin [Lipitor] 20 mg PO DAILY 01/16/19 [History] Budesonide/Formoterol 80/4.5 [Symbicort 80/4.5] 2 puff IH BID PRN 01/16/19 [History] Digoxin [Lanoxin] 0.125 mg PO DAILY 01/16/19 [History] Diltiazem CD (24hr) [Cardizem CD] 240 mg PO DAILY 01/16/19 [History] Finasteride [Proscar] 5 mg PO DAILY 01/16/19 [History] Ipratropium/Albuterol Neb [Duoneb] 3 ml IH QID PRN 01/16/19 [History] Multivit-Min/FA/Lycopen/Lutein [Centrum Silver Tablet] 1 tab PO DAILY 01/16/19 [History] Omeprazole [PriLOSEC] 20 mg PO DAILY 01/16/19 [History] Saw [place] 160 mg PO BID 01/16/19 [History] Tamsulosin [Flomax] 0.4 mg PO DAILY 01/16/19 [History] Warfarin [Coumadin] 6 mg PO DAILY 01/16/19 [History] Ferrous Sulfate [High Potency Iron] 27 mg PO DAILY 01/17/19 [History] Ketoconazole 2% CRM [Nizoral Cream] 1 appl TP BID 01/17/19 [History] Metoprolol Tartrate 50 mg PO BID 01/17/19 [History] Potassium Chloride [K-Tab ER] 20 meq PO Q48H 01/17/19 [History] Enoxaparin [Lovenox] 110 mg SQ Q12HCO #28 syringe 01/22/19 [Rx] Allergies/Adverse Reactions: Allergy/AdvReac Type Severity Reaction Status Date / Time No Known Allergies Allergy Verified 01/17/19 19:19 Date of admission: 01/21/19 18:52 Primary care physician: Natalia Anna MD Consults: 01/16/19 15:07 Consult to Oncology [CONS] Stat Consulting Provider: [facility] Reason for Consult: new lung mets, liver mets Call Completed: Yes 01/16/19 15:46 Consult to Oncology Hematology [CONS] Routine Consulting Provider: Cathy Yanez Reason for Consult: Metastatic lung cancer Call Completed: Yes 01/18/19 09:00 Consult to Interventional Radiology [CONS] Routine Consulting Provider: Radiology [facility] Reason for Consult: liver lesion core needle biopsy, coumadin held last night, INR 1.7, need to start heparin gtt Call Completed: Yes 01/18/19 17:50 Consult to Interventional Radiology [CONS] Routine Consulting Provider: Radiology [facility] Reason for Consult: liver lesion core needle biopsy 01/21, coumadin on hold, on heparin gtt Call Completed: No - Constitutional Vitals: Temp Pulse Resp BP Pulse Ox 97.7 F 58 17 142/84 97 01/22/19 11:24 01/22/19 11:24 01/22/19 11:24 01/22/19 11:24 01/22/19 11:24 General appearance: Present: A&O X 3 Exam: Gen.: Nonacute distress, alert and oriented 3 Skin: Normal color - Patient Status Disposition: Home, Self-Care Condition: Good - Discharge Instructions Instructions: Enoxaparin (Injection) Follow Up With: [facility] [Other] - 01/25/19 2:00 pm (You will need to follow up with [facility] this Monday.) Natalia Anna MD [Primary Care Provider] - 01/25/19 10:00 am Forms: ED Satisfaction Letter
[2019-01-22] MEDS ORDERED: *HR* Warfarin 3 MG TABLET PO ONE (18:00)
--- NOTE | 2019-01-25 07:26 | Electrocardiograph Report ---
[place] [id number] Test Date: 2019-01-18 Pat Name: Heriberto Muñoz Department: 113 Room: 3B44 Gender: M Child Development Specialist: CUONG : 1940 Requested By: Salvatore Hernandez Order Number: [id number] Reading MD: Wade Carvalho Measurements Intervals [place] Rate: 70 P: PA: 0 QRS: 52 QRSD: 105 T: 46 QT: 375 QTc: 396 Interpretive Statements ATRIAL FIBRILLATION ABNORMAL RHYTHM ECG Electronically Signed On 01-25-2019 7:24:28 EDT by Wade Carvalho
== END 2019-01-22 16:09 | disposition home or self-care (01) | DRG 181 ==
LOC: 3BNU 11:02 → EMEROOARM 11:02 → SUATTDRO 15:53 → 3BNU 17:41
PROVIDERS: ADMIT Internal Medicine; ATTEND Hospitalist